=== PATIENT | female | born 1995 | race Caucasian/White ===

== ENCOUNTER 2019-04-10 11:48 | Emergency (ER) | payer OTHER, MEDICAID ==
[~2019-04-10] VITALS: Ht 167.6 cm; Wt 99.8 kg
[2019-04-10 12:05] VITALS: BP 118/69
--- NOTE | 2019-04-10 12:33 | NUR ---
Patient taken to XRAY via wheelchair from ED lobby.
--- NOTE | 2019-04-10 13:14 | NUR ---
Patient ambulated to bed 4
--- NOTE | 2019-04-10 14:12 | NUR ---
Applied an sahara wrap to PT's right ankle. She did not want crutches, PA notified
--- NOTE | 2019-04-10 14:29 | NUR ---
Patient discharged with v/s stable. Written and verbal after care instructions given and explained. Patient verbalized understanding. Ambulatory with steady gait. All questions addressed prior to discharge. Advised to follow up with PMD.
[2019-04-10 14:34] VITALS: BP 121/75
== END 2019-04-10 14:29 | disposition home or self-care (01) ==
LOC: MED 11:48
DX: S93.491A Sprain of other ligament of right ankle, initial encounter (principal); Z88.6 Allergy status to analgesic agent; Y93.89 Activity, other specified; Y92.89 Other specified places as the place of occurrence of the external cause; Y99.8 Other external cause status
CPT/HCPCS: 73610; 99283